=== PATIENT | female | born 1995 | race Caucasian/White ===

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

== ENCOUNTER 2017-01-21 18:51 | Emergency (ER) | payer OTHER ==
[~2017-01-21] VITALS: Ht 165.1 cm; Wt 81.8 kg
[~2017-01-21 18:51] MED LIST changes: +CEFU1TAB20 PO; -CEFU250T PO; +CLIN150C14; +CLIN150C14 PO; -CLIN1CAP5 PO; +LEVAINH INH; +MECL-68 PO; +PERC5TAB12 PO; -PERC5TAB6 PO; -XOPEAER INH; +ZOFR4TAB3 PO
[2017-01-21] MEDS ORDERED: LEVAINH INH (19:02)
[2017-01-21] MEDS ORDERED: BREO1INH INH (19:02)
[2017-01-21] MEDS ORDERED: NS 1,000 ML IV ONE ×2 (19:30→21:45)
[2017-01-21] MEDS ORDERED: METOCLOPRAMIDE INJ 10MG/2ML VIAL (J2765) IV ONE (19:30)
[2017-01-21] MEDS ORDERED: C1 ESTERASE INHIBITOR IV ONE (19:45)
[2017-01-21] MEDS ORDERED: DILUENT IV ONE (19:45)
[2017-01-21] MEDS: MORPHINE 4 MG/ML 1ML SYRINGE IV PRN ×2 (19:51→20:29)
[2017-01-21 19:54] LABS: BASO % 0.2 % (0.0-1.0); EOS # 0.3 K/mm3 (0.0-0.50); EOS % 1.4 % (0.0-3.0); LARGE UNSTAINED CELL # 0.1 K/mm3 (0.0-0.4); LARGE UNSTAINED CELL % 0.2 % (0.0-4.0); LYMPH # 1.4 K/mm3 (1.5-6.5); LYMPH % 5.9 % (24.0-44.0); MEAN CORPUSCULAR HEMOGLOBIN 26.7 pg (27.0-33.0); MEAN CORPUSCULAR HGB CONC 33.3 g/dl (32.0-36.5); MEAN CORPUSCULAR VOLUME 80.3 fl (80.0-96.0); MONO # 0.4 K/mm3 (0.0-0.8); MONO % 1.9 % (0.0-5.0); NEUTROPHILS % 90.4 % (36.0-66.0); PLATELET COUNT, AUTOMATED 376 k/mm3 (150-450); RED CELL DISTRIBUTION WIDTH 14.2 % (11.5-14.5); WHITE BLOOD COUNT 23.3 K/mm3 (4.0-10.0)
[2017-01-21 20:16] LABS: CONTROL LINE HCG INT CTR LINE PRESENT
[2017-01-21 20:25] LABS: ALBUMIN 3.8 GM/DL (3.2-5.2); ALKALINE PHOSPHATASE 85 U/L (45-117); ALT/SGPT 22 U/L (12-78); ANION GAP 11 MEQ/L (8-16); AST/SGOT 16 U/L (15-37); BILIRUBIN,DIRECT 0.1 MG/DL (0.0-0.2); BILIRUBIN,TOTAL 0.6 MG/DL (0.2-1.0); BLOOD UREA NITROGEN 10 MG/DL (7-18); CALCIUM LEVEL 9.1 MG/DL (8.5-10.1); CARBON DIOXIDE LEVEL 22 MEQ/L (21-32); CHLORIDE LEVEL 108 MEQ/L (98-107); CREATININE FOR GFR 0.84 MG/DL (0.55-1.02); GLUCOSE, FASTING 107 MG/DL (70-105); POTASSIUM SERUM 4.3 MEQ/L (3.5-5.1); SODIUM LEVEL 141 MEQ/L (136-145); TOTAL PROTEIN 7.6 GM/DL (6.4-8.2)
[2017-01-21] MEDS ORDERED: ISOVUE-370 76% 100ML VIAL (Q9967) As Ordered ONE (22:15)
--- NOTE | 2017-01-21 22:50 | REPUSA ---
CT of the abdomen and pelvis with contrast Clinical statement: leukocytosis. Technique: Multiple axial CT images were obtained from the base of the lungs through the floor of the pelvis utilizing 5 mm axial slices after administration of nonionic intravenous contrast. Coronal an d sagittal reconstructions were also obtained. Comparison: 12/02/2013. Findings: Chest: There is minimal atelectasis at the right lung base. Abdomen: The liver, spleen, pancreas, kidneys, gallbladder, and adrenal glands are unremarkable. The aorta is within normal limits. There is no evidence of abdominal lymphadenopathy. There is moderate a mount of abdominal ascites. Pelvis: The proximal small bowel, Involving the duodenum and proximal jejunum, is diffusely inflamed with extensive bowel wall thickening and edema noted. The patient is status post appendectomy. The co antoni appears unremarkable. The urinary bladder is within normal limits. The other pelvic structures ap pear grossly intact. There is no evidence of pelvic lymphadenopathy. There is moderate amount of pelv ic ascites. Bones: There are no suspicious osseous abnormalities seen. Impression: 1. The bowel wall thickening involving the duodenum and proximal jejunum as worsened since the prior study, with increased distribution of inflammation since the prior exam. There is no evidence of yoselin l obstruction. Differential diagnosis includes infectious versus inflammatory enteritis. Lymphoma is considered unlikely, but cannot be excluded. Endoscopy may be helpful for further evaluation. 2. Moderate amount of abdominal and pelvic ascites, increased since the prior study. 3. Minimal right basilar atelectasis.
[2017-01-22] MEDS ORDERED: NORCO 5/325MG TABLET (BULK FOR ED) PO ONE (00:45)
[2017-01-22 01:04] VITALS: BP 101/59
--- NOTE | 2017-01-22 13:46 | ED PDOC ---
Post-Departure Follow-Up dr nghia carrera faxed formal report of ct abd/p for fu Fortino Solorio MD Jan 22, 2017 13:46
== END 2017-01-22 01:21 | disposition home or self-care (01) ==
LOC: M ED 19:32
DX: D84.1 Defects in the complement system (principal); J45.909 Unspecified asthma, uncomplicated; Z88.0 Allergy status to penicillin; Z88.2 Allergy status to sulfonamides; Z88.8 Allergy status to other drugs, medicaments and biological substances; Z79.51 Long term (current) use of inhaled steroids; Z79.899 Other long term (current) drug therapy
CPT/HCPCS: 74177; 80048; 80076; 81001; 83605; 83690; 84703; 85025; 87040; 87088; 87186; 93041; 96361; 96374; 96375; 99285; J0597; J2765; Q9967

== ENCOUNTER 2017-03-12 19:24 | Emergency (ER) | payer OTHER, SELFPAY ==
[~2017-03-12] VITALS: Ht 165.1 cm; Wt 85.0 kg
[~2017-03-12 19:24] MED LIST changes: +BREO1INH INH
[2017-03-12] MEDS ORDERED: METOCLOPRAMIDE INJ 10MG/2ML VIAL (J2765) IV ONE (19:45)
[2017-03-12] MEDS ORDERED: C1 ESTERASE INHIBITOR IV ONE (19:45)
[2017-03-12] MEDS ORDERED: DILUENT IV ONE (19:45)
[2017-03-12 22:56] VITALS: BP 115/60
== END 2017-03-12 22:57 | disposition home or self-care (01) ==
LOC: M ED 19:24 → EDBD 19:24 → EDUNIT# 19:24 → M ED 22:57
DX: D84.1 Defects in the complement system (principal); T78.3XXA Angioneurotic edema, initial encounter; X58.XXXA Exposure to other specified factors, initial encounter; Y92.9 Unspecified place or not applicable; Y93.9 Activity, unspecified; Y99.8 Other external cause status; Z79.899 Other long term (current) drug therapy; Z88.0 Allergy status to penicillin; Z88.2 Allergy status to sulfonamides; Z88.8 Allergy status to other drugs, medicaments and biological substances
CPT/HCPCS: 96374; 96375; 99283; J0597; J2765

== ENCOUNTER 2017-04-15 23:26 | Emergency (ER) | payer OTHER ==
[~2017-04-15] VITALS: Ht 165.1 cm; Wt 77.3 kg
[2017-04-16] MEDS ORDERED: [UNRECOGNIZED DRUG - CODE] IV (00:01)
[2017-04-16] MEDS ORDERED: HEPA100SY INJ (00:01)
[2017-04-16] MEDS ORDERED: ONDANSETRON 4MG/2ML VIAL (J2405) IV ONE (01:00)
[2017-04-16] MEDS ORDERED: C1 ESTERASE INHIBITOR IV ONE (01:00)
[2017-04-16] MEDS ORDERED: NS 1,000 ML IV ONE (01:00)
[2017-04-16] MEDS ORDERED: DILUENT IV ONE (01:00)
[2017-04-16] MEDS ORDERED: METAL LOCK LOOP XX ONE (01:16)
[2017-04-16 01:24] LABS: BASO # 0.1 K/mm3 (0.0-0.2); BASO % 0.5 % (0.0-1.0); EOS # 0.3 K/mm3 (0.0-0.50); EOS % 1.8 % (0.0-3.0); LARGE UNSTAINED CELL # 0.2 K/mm3 (0.0-0.4); LARGE UNSTAINED CELL % 1.3 % (0.0-4.0); LYMPH # 2.2 K/mm3 (1.5-6.5); LYMPH % 14.7 % (24.0-44.0); MEAN CORPUSCULAR HEMOGLOBIN 27.4 pg (27.0-33.0); MEAN CORPUSCULAR HGB CONC 34.1 g/dl (32.0-36.5); MEAN CORPUSCULAR VOLUME 80.6 fl (80.0-96.0); MONO # 0.5 K/mm3 (0.0-0.8); MONO % 3.3 % (0.0-5.0); NEUTROPHILS # 11.8 K/mm3 (1.8-7.7); NEUTROPHILS % 78.4 % (36.0-66.0); PLATELET COUNT, AUTOMATED 357 k/mm3 (150-450); RED CELL DISTRIBUTION WIDTH 14.2 % (11.5-14.5); WHITE BLOOD COUNT 15.1 K/mm3 (4.0-10.0)
[2017-04-16] MEDS: MORPHINE 4 MG/ML 1ML SYRINGE IV PRN ×2 (01:32→02:18)
[2017-04-16 01:45] LABS: ALBUMIN 3.5 GM/DL (3.2-5.2); ALBUMIN/GLOBULIN RATIO 0.88 (1.00-1.93); ALKALINE PHOSPHATASE 75 U/L (45-117); ALT/SGPT 28 U/L (12-78); ANION GAP 8 MEQ/L (8-16); AST/SGOT 12 U/L (15-37); BILIRUBIN,DIRECT 0.1 MG/DL (0.0-0.2); BILIRUBIN,TOTAL 0.4 MG/DL (0.2-1.0); BLOOD UREA NITROGEN 16 MG/DL (7-18); CALCIUM LEVEL 8.8 MG/DL (8.5-10.1); CARBON DIOXIDE LEVEL 24 MEQ/L (21-32); CHLORIDE LEVEL 109 MEQ/L (98-107); CREATININE FOR GFR 0.87 MG/DL (0.55-1.02); GLUCOSE, FASTING 111 MG/DL (70-105); POTASSIUM SERUM 3.6 MEQ/L (3.5-5.1); SODIUM LEVEL 141 MEQ/L (136-145); TOTAL PROTEIN 7.5 GM/DL (6.4-8.2)
[2017-04-16 05:19] VITALS: BP 100/52
== END 2017-04-16 05:22 | disposition home or self-care (01) ==
LOC: M ED 23:26
DX: D84.1 Defects in the complement system (principal); F17.210 Nicotine dependence, cigarettes, uncomplicated; Z79.51 Long term (current) use of inhaled steroids; Z88.0 Allergy status to penicillin; Z88.2 Allergy status to sulfonamides; Z88.8 Allergy status to other drugs, medicaments and biological substances
CPT/HCPCS: 80048; 80076; 83690; 85025; 93041; 96361; 96374; 96375; 96376; 99284; J0597; J2405

== ENCOUNTER 2017-04-29 19:03 | Emergency (ER) | payer OTHER ==
[~2017-04-29] VITALS: Ht 165.1 cm; Wt 91.8 kg
[~2017-04-29 19:03] MED LIST changes: +HEPA100SY INJ
[2017-04-29] MEDS ORDERED: SODIUM CHLORIDE 0.9% INJ 10 ML SYR IV PRN (20:45)
[2017-04-29] MEDS ORDERED: C1 ESTERASE INHIBITOR IV ONE (20:45)
[2017-04-29] MEDS ORDERED: KETOROLAC 30 MG/ML VIAL (J1885) IV ONE (20:45)
[2017-04-29] MEDS ORDERED: DILUENT IV ONE (20:45)
[2017-04-29 22:40] VITALS: BP 111/55
--- NOTE | 2017-04-30 00:15 | REP ---
Clinical: Acute abdominal pain. Technique: Upright view of the chest with supine and upright views of the abdomen and pelvis. Findings: Frontal upright view of the chest demonstrates no acute cardiopulmonary process or free air below the diaphragm to suspect pneumoperitoneum. [id number] identified with tip in the right atrium. Supine and upright views of the abdomen and pelvis demonstrate nonspecific bowel gas pattern without obstruction or perforation. No organomegaly. No abnormal calcifications. Skeletal structures normal for age. Impression: Nonspecific bowel gas pattern. Signed by Chucho Bowman MD 04/30/2017 12:05 A
== END 2017-04-29 22:42 | disposition home or self-care (01) ==
LOC: M ED 19:03
DX: D84.1 Defects in the complement system (principal); R10.9 Unspecified abdominal pain; Z79.51 Long term (current) use of inhaled steroids; Z79.899 Other long term (current) drug therapy; Z88.8 Allergy status to other drugs, medicaments and biological substances; Z88.2 Allergy status to sulfonamides; Z88.1 Allergy status to other antibiotic agents
CPT/HCPCS: 74022; 84702; 96374; 96375; 99283; J0597; J1885

== ENCOUNTER → 2023-09-16 | Outpatient (REF) ==
[~2023-09-16] MED LIST changes: -CLIN150C14; -CLIN150C14 PO; +CLIN150C17; +CLIN150C17 PO; +MECL-209 PO; -MECL-68 PO; +ZOFR4TAB14 PO; -ZOFR4TAB3 PO; -[UNRECOGNIZED DRUG - CODE] IV; +[UNRECOGNIZED DRUG - OTHER] IV
== END ==
LOC: M EMP 09:13
PROVIDERS: ATTEND Family Medicine
DX: Z11.52 Encounter for screening for COVID-19 (principal)

== ENCOUNTER → 2023-10-13 | Outpatient (REF) | payer OTHER, MEDICAID ==
[2023-10-13 13:48] LABS: APPEARANCE, URINE HAZY (CLEAR); BACTERIA, URINE AUTO NEGATIVE (NEGATIVE); BILIRUBIN, URINE AUTO NEGATIVE (NEGATIVE); BLOOD, URINE BLOOD NEGATIVE (NEGATIVE); COLOR, URINE YELLOW (YELLOW); GLUCOSE, URINE (UA) AUTO NEGATIVE (NEGATIVE); KETONE, URINE AUTO NEGATIVE (NEGATIVE); LEUKOCYTE ESTERASE, URINE AUTO NEGATIVE (NEGATIVE); MUCUS, URINE SMALL (NEGATIVE); NITRITE, URINE AUTO NEGATIVE (NEGATIVE); PROTEIN, URINE AUTO 1+ mg/dL (NEGATIVE); RBC, URINE AUTO 1 /HPF (0-3); SPECIFIC GRAVITY URINE AUTO 1.023 (1.002-1.035); SQUAMOUS EPITHELIAL CELL UR AU 3 /HPF (0-6); WBC, URINE AUTO 2 /HPF (0-3)
== END ==
LOC: M LAB REF 13:02
PROVIDERS: ATTEND Physician Assistant
DX: N39.0 Urinary tract infection, site not specified (principal)

== ENCOUNTER → 2023-10-21 | Outpatient (REF) | payer OTHER, MEDICAID ==
[2023-10-21 17:59] LABS: HEMATOCRIT 35.5 % (36.0-47.0); HEMOGLOBIN 11.6 g/dl (12.0-15.5); MEAN CORPUSCULAR HGB CONC 32.7 g/dl (32.0-36.5); MEAN CORPUSCULAR VOLUME 85.7 fl (80.0-96.0); PLATELET COUNT, AUTOMATED 235 10^3/uL (150-450); RED BLOOD COUNT 4.14 10^6/uL (4.00-5.40); WHITE BLOOD COUNT 10.5 10^3/uL (4.0-10.0)
[2023-10-21 18:58] LABS: HIV 1&2 SCREEN NEGATIVE (NEGATIVE)
[2023-10-21 19:06] LABS: HEPATITIS C VIRUS ABY INDEX < 0.02 INDEX (<0.8)
[2023-10-21 19:19] LABS: GC DNA AMPLIFICATION NEGATIVE (NEGATIVE)
== END ==
LOC: M SFHCWAGY 17:24
PROVIDERS: ATTEND Advanced Practice Midwife
DX: Z34.81 Encounter for supervision of other normal pregnancy, first trimester (principal)

== ENCOUNTER → 2023-12-17 | Outpatient (CLI) | payer MEDICAID | LOC: M WHC 14:27 | PROVIDERS: ATTEND Advanced Practice Midwife | DX: Z34.82 Encounter for supervision of other normal pregnancy, second trimester (principal) ==

== ENCOUNTER 2024-01-12 20:12 | Outpatient (CLI) | payer MEDICAID ==
[~2024-01-12] VITALS: Ht 165.1 cm; Wt 79.5 kg
[~2024-01-12 20:12] MED LIST changes: -ACET325C5 PO; -PRENTAB9 PO
[2024-01-12] MEDS ORDERED: PRENTAB9 PO (20:27)
[2024-01-12] MEDS ORDERED: ACET325C5 PO (20:27)
[2024-01-12 22:35] LABS: HEMATOCRIT 29.5 % (36.0-47.0); HEMOGLOBIN 9.7 g/dl (12.0-15.5); MEAN CORPUSCULAR HGB CONC 32.9 g/dl (32.0-36.5); PLATELET COUNT, AUTOMATED 208 10^3/uL (150-450); RED BLOOD COUNT 3.47 10^6/uL (4.00-5.40); WHITE BLOOD COUNT 11.1 10^3/uL (4.0-10.0)
[2024-01-12 23:00] LABS: LIPASE 33 U/L (12-53)
[2024-01-12 23:01] LABS: AMYLASE 54 U/L (30-118)
[2024-01-12 23:02] LABS: ALBUMIN 2.2 G/DL (3.2-5.2); ALKALINE PHOSPHATASE 60 U/L (46-116); ALT/SGPT 12 U/L (7.0-40); AST/SGOT 8 U/L (<34); BILIRUBIN,TOTAL 0.4 MG/DL (0.3-1.2); BLOOD UREA NITROGEN 7 MG/DL (9-23); CALCIUM LEVEL 7.8 MG/DL (8.5-10.1); CARBON DIOXIDE LEVEL 27 MMOL/L (20-31); CHLORIDE LEVEL 108 MMOL/L (98-107); CREATININE FOR GFR 0.62 MG/DL (0.55-1.30); GLOMERULAR FILTRATION RATE > 60.0 (>60); GLUCOSE, FASTING 108 MG/DL (60-100); POTASSIUM SERUM 3.8 MMOL/L (3.5-5.1); SODIUM LEVEL 139 MMOL/L (136-145); TOTAL PROTEIN 5.3 G/DL (5.7-8.2)
== END 2024-01-13 00:19 | disposition home or self-care (01) ==
LOC: M LDO 20:12
PROVIDERS: ATTEND Advanced Practice Midwife
DX: O26.892 Other specified pregnancy related conditions, second trimester (principal); O99.012 Anemia complicating pregnancy, second trimester; O99.13 Other diseases of the blood and blood-forming organs and certain disorders involving the immune mechanism complicating the puerperium; R10.11 Right upper quadrant pain; D84.1 Defects in the complement system; D50.9 Iron deficiency anemia, unspecified; Z14.1 Cystic fibrosis carrier; Z88.0 Allergy status to penicillin; Z88.1 Allergy status to other antibiotic agents; Z3A.24 24 weeks gestation of pregnancy
CPT/HCPCS: 36415; 59025; 80053; 82150; 83690; 85027; G0463

== ENCOUNTER → 2024-01-12 | Outpatient (CLI) | payer MEDICAID ==
[~2024-01-12] MED LIST changes: +ACET325C5 PO; +PRENTAB9 PO
[2024-01-12 18:23] LABS: HEMATOCRIT 32.3 % (36.0-47.0); HEMOGLOBIN 10.5 g/dl (12.0-15.5); MEAN CORPUSCULAR HEMOGLOBIN 27.9 pg (27.0-33.0); MEAN CORPUSCULAR HGB CONC 32.5 g/dl (32.0-36.5); MEAN CORPUSCULAR VOLUME 85.9 fl (80.0-96.0); PLATELET COUNT, AUTOMATED 228 10^3/uL (150-450); RED BLOOD COUNT 3.76 10^6/uL (4.00-5.40)
[2024-01-12 20:17] LABS: GC DNA AMPLIFICATION NEGATIVE (NEGATIVE)
== END ==
LOC: M PLALAB 14:38
PROVIDERS: ATTEND Obstetrics & Gynecology
DX: Z36.89 Encounter for other specified antenatal screening (principal); Z3A.24 24 weeks gestation of pregnancy

== ENCOUNTER 2024-01-18 22:46 | Outpatient (CLI) | payer MEDICAID ==
[~2024-01-18] VITALS: Ht 165.1 cm; Wt 79.8 kg
[~2024-01-18 22:46] MED LIST changes: +ACET325C5 PO; +PRENTAB9 PO
[2024-01-18 23:01] VITALS: BP 104/56
[2024-01-18 23:58] VITALS: BP 98/53
[2024-01-19] MEDS: METOCLOPRAMIDE 10MG TAB PO ONE (00:09)
== END 2024-01-19 00:49 | disposition home or self-care (01) ==
LOC: M LDO 22:46
PROVIDERS: ATTEND Obstetrics & Gynecology
DX: O26.893 Other specified pregnancy related conditions, third trimester (principal); R10.30 Lower abdominal pain, unspecified; Z3A.25 25 weeks gestation of pregnancy
CPT/HCPCS: 59025; 81001; 87086; G0463

== ENCOUNTER → 2024-02-01 | Outpatient (CLI) | payer MEDICAID | LOC: M PLALAB 11:51 | PROVIDERS: ATTEND Obstetrics & Gynecology | DX: Z36.89 Encounter for other specified antenatal screening (principal); Z3A.24 24 weeks gestation of pregnancy ==

== ENCOUNTER 2024-06-16 17:54 | Emergency (ER) | payer MEDICAID, OTHER ==
[~2024-06-16] VITALS: Ht 165.1 cm; Wt 78.1 kg
[~2024-06-16 17:54] MED LIST changes: +LEVA15HF2 INH; -LEVAINH INH
[2024-06-16 18:06] VITALS: TEMP 97.9
[2024-06-16 18:37] LABS: BASO # 0.1 10^3/uL (0.0-0.2); BASO % 0.5 % (0.0-1.0); EOS % 0.1 % (0.0-3.0); HEMATOCRIT 47.4 % (36.0-47.0); HEMOGLOBIN 14.6 g/dl (12.0-15.5); LYMPH # 2.3 10^3/uL (1.5-5.0); LYMPH % 11.2 % (24.0-44.0); MEAN CORPUSCULAR HEMOGLOBIN 23.3 pg (27.0-33.0); MEAN CORPUSCULAR HGB CONC 30.8 g/dl (32.0-36.5); MEAN CORPUSCULAR VOLUME 75.7 fl (80.0-96.0); MONO # 1.3 10^3/uL (0.0-0.8); MONO % 6.5 % (2.0-8.0); NEUTROPHILS # 16.6 10^3/uL (1.5-8.5); NEUTROPHILS % 81.3 % (36.0-66.0); PLATELET COUNT, AUTOMATED 539 10^3/uL (150-450); RED BLOOD COUNT 6.26 10^6/uL (4.00-5.40); WHITE BLOOD COUNT 20.4 10^3/uL (4.0-10.0)
[2024-06-16] MEDS ORDERED: ISOVUE-370 76% 100ML VIAL As Ordered ONE (18:46)
[2024-06-16] MEDS: NS (Normal Saline) 0.9% 1,000 ML IV ONE (18:50)
[2024-06-16] MEDS: PROMETHAZINE 25MG/ML 1ML VIAL IV ONE ×2 (18:50→21:20)
[2024-06-16] MEDS: MORPHINE 4 MG/ML 1ML VIAL IV ONE ×2 (18:51→21:19)
[2024-06-16 18:59] LABS: LIPASE 39 U/L (12-53)
[2024-06-16 19:01] LABS: ALBUMIN 4.1 G/DL (3.2-5.2); ALKALINE PHOSPHATASE 105 U/L (35-104); ALT/SGPT 25 U/L (7.0-40); AST/SGOT 14 U/L (<34); BILIRUBIN,DIRECT 0.2 MG/DL (<0.4); BILIRUBIN,TOTAL 0.7 MG/DL (0.3-1.2); BLOOD UREA NITROGEN 15 MG/DL (9-23); CALCIUM LEVEL 10.1 MG/DL (8.5-10.1); CARBON DIOXIDE LEVEL 24 MMOL/L (20-31); CHLORIDE LEVEL 104 MMOL/L (98-107); CREATININE FOR GFR 0.92 MG/DL (0.55-1.30); GLOMERULAR FILTRATION RATE > 60.0 (>60); GLUCOSE, FASTING 122 MG/DL (60-100); POTASSIUM SERUM 4.4 MMOL/L (3.5-5.1); SODIUM LEVEL 140 MMOL/L (136-145); TOTAL PROTEIN 8.7 G/DL (5.7-8.2)
[2024-06-16] MEDS: C1 ESTERASE INHIBITOR IV ONE (22:20)
[2024-06-16 23:00] VITALS: O2SAT 96
[2024-06-16 23:30] VITALS: BP 112/65
== END 2024-06-16 23:46 | disposition home or self-care (01) ==
LOC: M ED 17:54
DX: R10.9 Unspecified abdominal pain (principal); D84.1 Defects in the complement system; F41.9 Anxiety disorder, unspecified; Z88.0 Allergy status to penicillin; Z88.2 Allergy status to sulfonamides; Z88.8 Allergy status to other drugs, medicaments and biological substances; Z79.1 Long term (current) use of non-steroidal anti-inflammatories (NSAID); Z79.899 Other long term (current) drug therapy
CPT/HCPCS: 74177; 80047; 80048; 80076; 83605; 83690; 85025; 87040; 96361; 96374; 96375; 96376; 99284; J0597; J2550; Q9967

== ENCOUNTER 2024-07-04 01:57 | Emergency (ER) | payer OTHER ==
[~2024-07-04] VITALS: Ht 165.1 cm; Wt 76.6 kg
[2024-07-04 02:01] VITALS: TEMP 97.8
[2024-07-04] MEDS ORDERED: ONDANSETRON 4MG 2ML VIAL IV ONE (02:40)
[2024-07-04 02:59] LABS: BASO # 0.1 10^3/uL (0.0-0.2); BASO % 0.5 % (0.0-1.0); EOS # 0.1 10^3/uL (0.0-0.5); EOS % 0.6 % (0.0-3.0); HEMATOCRIT 40.9 % (36.0-47.0); HEMOGLOBIN 12.3 g/dl (12.0-15.5); LYMPH # 1.7 10^3/uL (1.5-5.0); LYMPH % 9.4 % (24.0-44.0); MEAN CORPUSCULAR HEMOGLOBIN 23.4 pg (27.0-33.0); MEAN CORPUSCULAR HGB CONC 30.1 g/dl (32.0-36.5); MEAN CORPUSCULAR VOLUME 77.8 fl (80.0-96.0); MONO # 1.1 10^3/uL (0.0-0.8); MONO % 5.8 % (2.0-8.0); NEUTROPHILS % 83.3 % (36.0-66.0); PLATELET COUNT, AUTOMATED 318 10^3/uL (150-450); RED BLOOD COUNT 5.26 10^6/uL (4.00-5.40)
[2024-07-04] MEDS: C1 ESTERASE INHIBITOR IV ONE (03:07)
[2024-07-04] MEDS: MORPHINE 4 MG/ML 1ML VIAL IV PRN (03:07)
[2024-07-04] MEDS: PROMETHAZINE 25MG/ML 1ML VIAL IV ONE (03:07)
[2024-07-04 03:37] LABS: LIPASE 24 U/L (12-53)
[2024-07-04 03:39] LABS: ALBUMIN 3.5 G/DL (3.2-5.2); ALKALINE PHOSPHATASE 72 U/L (35-104); ALT/SGPT 20 U/L (7.0-40); AST/SGOT 20 U/L (<34); BILIRUBIN,DIRECT 0.2 MG/DL (<0.4); BILIRUBIN,TOTAL 0.5 MG/DL (0.3-1.2); BLOOD UREA NITROGEN 12 MG/DL (9-23); CALCIUM LEVEL 9.1 MG/DL (8.5-10.1); CARBON DIOXIDE LEVEL 22 MMOL/L (20-31); CHLORIDE LEVEL 111 MMOL/L (98-107); CREATININE FOR GFR 0.71 MG/DL (0.55-1.30); GLOMERULAR FILTRATION RATE > 60.0 (>60); GLUCOSE, FASTING 153 MG/DL (60-100); POTASSIUM SERUM 3.8 MMOL/L (3.5-5.1); SODIUM LEVEL 142 MMOL/L (136-145)
[2024-07-04 05:00] VITALS: BP 98/68; O2SAT 96
== END 2024-07-04 05:27 | disposition home or self-care (01) ==
LOC: M ED 01:57
DX: D84.1 Defects in the complement system (principal); J45.909 Unspecified asthma, uncomplicated; F17.290 Nicotine dependence, other tobacco product, uncomplicated; Z88.0 Allergy status to penicillin; Z88.2 Allergy status to sulfonamides; Z88.8 Allergy status to other drugs, medicaments and biological substances; Z79.1 Long term (current) use of non-steroidal anti-inflammatories (NSAID); Z79.899 Other long term (current) drug therapy
CPT/HCPCS: 80048; 80076; 83690; 85025; 93041; 96365; 96375; 99284; J0597; J1642; J2550

== ENCOUNTER 2024-08-03 20:48 | Emergency (ER) | payer MEDICAID, OTHER ==
[~2024-08-03] VITALS: Ht 165.1 cm; Wt 76.7 kg
[2024-08-03 23:07] LABS: BASO # 0.1 10^3/uL (0.0-0.2); BASO % 0.7 % (0.0-1.0); EOS # 0.2 10^3/uL (0.0-0.5); EOS % 1.7 % (0.0-3.0); HEMATOCRIT 39.5 % (36.0-47.0); HEMOGLOBIN 11.8 g/dl (12.0-15.5); LYMPH # 2.3 10^3/uL (1.5-5.0); LYMPH % 20.8 % (24.0-44.0); MEAN CORPUSCULAR HEMOGLOBIN 23.1 pg (27.0-33.0); MEAN CORPUSCULAR HGB CONC 29.9 g/dl (32.0-36.5); MEAN CORPUSCULAR VOLUME 77.3 fl (80.0-96.0); MONO # 0.8 10^3/uL (0.0-0.8); MONO % 6.8 % (2.0-8.0); NEUTROPHILS # 7.8 10^3/uL (1.5-8.5); NEUTROPHILS % 69.7 % (36.0-66.0); PLATELET COUNT, AUTOMATED 318 10^3/uL (150-450); RED BLOOD COUNT 5.11 10^6/uL (4.00-5.40); WHITE BLOOD COUNT 11.2 10^3/uL (4.0-10.0)
[2024-08-03 23:28] LABS: LIPASE 51 U/L (12-53)
[2024-08-03 23:31] LABS: ALBUMIN 4.2 G/DL (3.2-5.2); ALKALINE PHOSPHATASE 79 U/L (35-104); ALT/SGPT 22 U/L (7.0-40); AST/SGOT 16 U/L (<34); BILIRUBIN,DIRECT 0.1 MG/DL (<0.4); BILIRUBIN,TOTAL 0.3 MG/DL (0.3-1.2); BLOOD UREA NITROGEN 16 MG/DL (9-23); CALCIUM LEVEL 10.2 MG/DL (8.5-10.1); CARBON DIOXIDE LEVEL 26 MMOL/L (20-31); CHLORIDE LEVEL 106 MMOL/L (98-107); CREATININE FOR GFR 0.78 MG/DL (0.55-1.30); GLOMERULAR FILTRATION RATE > 60.0 (>60); GLUCOSE, FASTING 88 MG/DL (60-100); POTASSIUM SERUM 4.2 MMOL/L (3.5-5.1); SODIUM LEVEL 142 MMOL/L (136-145); TOTAL PROTEIN 8.1 G/DL (5.7-8.2)
[2024-08-03 23:32] LABS: HCG, SERUM QUALITATIVE NEGATIVE (NEGATIVE)
[2024-08-03 23:44] LABS: KETONE, URINE AUTO RFX NEGATIVE (NEGATIVE); RBC, URINE AUTO RFX 2 /HPF (0-3); SQUAM EPITHELIAL CELL UR AURFX 12 /HPF (0-6)
[2024-08-03 23:54] LABS: LEUKOCYTE ESTERASE UR AUTO RFX 3+ (NEGATIVE); NITRITE, URINE AUTO RFX POSITIVE (NEGATIVE); WBC, URINE AUTO RFX 166 /HPF (0-3)
[2024-08-04] MEDS ORDERED: C1 ESTERASE INHIBITOR IV ONE (00:20)
[2024-08-04] MEDS: ONDANSETRON 4MG 2ML VIAL IV ONE (00:51)
[2024-08-04] MEDS: cefTRIAXone SOD 1 GM in DEXTROSE 5% (D5W) ADV/MINI-BAG 50 ML IV ONE (00:57)
[2024-08-04] MEDS ORDERED: CEFD1CAP9 PO (01:37)
[2024-08-04] MEDS: C1 ESTERASE INHIBITOR IV ONE (01:44)
[2024-08-04 01:45] VITALS: BP 117/67
[2024-08-04 01:54] VITALS: TEMP 97.6; O2SAT 99
[2024-08-04] MEDS: SODIUM CHLORIDE 0.9% INJ 10 ML SYR IV PRN (01:56)
== END 2024-08-04 02:05 | disposition home or self-care (01) ==
LOC: M ED 20:48
DX: N39.0 Urinary tract infection, site not specified (principal); R10.9 Unspecified abdominal pain; D84.1 Defects in the complement system; Z88.0 Allergy status to penicillin; Z88.2 Allergy status to sulfonamides; Z88.8 Allergy status to other drugs, medicaments and biological substances; Z79.1 Long term (current) use of non-steroidal anti-inflammatories (NSAID); Z79.2 Long term (current) use of antibiotics
CPT/HCPCS: 80048; 80076; 81001; 83690; 84703; 85025; 87088; 87186; 96365; 96375; 99283; 99284; J0597; J0696; J1642

== ENCOUNTER 2024-09-09 06:53 | Emergency (ER) | payer MEDICAID, OTHER ==
[~2024-09-09] VITALS: Ht 165.1 cm; Wt 79.5 kg
[~2024-09-09 06:53] MED LIST changes: +CEFD1CAP9 PO
[2024-09-09] MEDS ORDERED: SODIUM CHLORIDE 0.9% INJ 10 ML SYR IV PRN (08:05)
[2024-09-09] MEDS: METOCLOPRAMIDE INJ 10MG/2ML VIAL IV ONE (08:30)
[2024-09-09] MEDS: MORPHINE 4 MG/ML 1ML VIAL IV ONE (08:31)
[2024-09-09 08:37] LABS: BASO # 0.1 10^3/uL (0.0-0.2); BASO % 0.4 % (0.0-1.0); EOS # 0.1 10^3/uL (0.0-0.5); EOS % 0.8 % (0.0-3.0); HEMATOCRIT 36.8 % (36.0-47.0); LYMPH # 1.2 10^3/uL (1.5-5.0); LYMPH % 8.6 % (24.0-44.0); MEAN CORPUSCULAR HEMOGLOBIN 23.4 pg (27.0-33.0); MEAN CORPUSCULAR HGB CONC 29.9 g/dl (32.0-36.5); MEAN CORPUSCULAR VOLUME 78.1 fl (80.0-96.0); MONO # 0.6 10^3/uL (0.0-0.8); MONO % 4.3 % (2.0-8.0); NEUTROPHILS % 85.6 % (36.0-66.0); PLATELET COUNT, AUTOMATED 406 10^3/uL (150-450); RED BLOOD COUNT 4.71 10^6/uL (4.00-5.40); WHITE BLOOD COUNT 14.1 10^3/uL (4.0-10.0)
[2024-09-09] MEDS: C1 ESTERASE INHIBITOR IV ONE (09:00)
[2024-09-09 09:07] LABS: ALBUMIN 3.5 G/DL (3.2-5.2); ALKALINE PHOSPHATASE 64 U/L (35-104); ALT/SGPT 16 U/L (7.0-40); AST/SGOT 14 U/L (<34); BILIRUBIN,TOTAL 0.6 MG/DL (0.3-1.2); BLOOD UREA NITROGEN 12 MG/DL (9-23); CALCIUM LEVEL 8.8 MG/DL (8.5-10.1); CARBON DIOXIDE LEVEL 27 MMOL/L (20-31); CHLORIDE LEVEL 112 MMOL/L (98-107); GLOMERULAR FILTRATION RATE > 60.0 (>60); GLUCOSE, FASTING 106 MG/DL (60-100); POTASSIUM SERUM 4.6 MMOL/L (3.5-5.1); SODIUM LEVEL 145 MMOL/L (136-145); TOTAL PROTEIN 7.2 G/DL (5.7-8.2)
[2024-09-09 09:53] VITALS: O2SAT 99
[2024-09-09 10:00] VITALS: BP 108/70
[2024-09-09 10:40] VITALS: TEMP 97.9
== END 2024-09-09 10:44 | disposition home or self-care (01) ==
LOC: M ED 07:30
DX: R10.9 Unspecified abdominal pain (principal); D84.1 Defects in the complement system; Z88.0 Allergy status to penicillin; Z88.2 Allergy status to sulfonamides; Z88.8 Allergy status to other drugs, medicaments and biological substances; Z79.899 Other long term (current) drug therapy
CPT/HCPCS: 80053; 85025; 96374; 96375; 99284; J0597; J2765

== ENCOUNTER 2024-10-16 18:25 | Emergency (ER) | payer OTHER ==
[~2024-10-16] VITALS: Ht 165.1 cm; Wt 78.4 kg
[2024-10-16 19:32] LABS: BASO # 0.1 10^3/uL (0.0-0.2); BASO % 0.5 % (0.0-1.0); EOS # 0.2 10^3/uL (0.0-0.5); EOS % 2.1 % (0.0-3.0); HEMATOCRIT 35.3 % (36.0-47.0); HEMOGLOBIN 10.8 g/dl (12.0-15.5); LYMPH # 3.3 10^3/uL (1.5-5.0); LYMPH % 32.8 % (24.0-44.0); MEAN CORPUSCULAR HEMOGLOBIN 23.4 pg (27.0-33.0); MEAN CORPUSCULAR HGB CONC 30.6 g/dl (32.0-36.5); MEAN CORPUSCULAR VOLUME 76.4 fl (80.0-96.0); MONO # 0.6 10^3/uL (0.0-0.8); NEUTROPHILS # 5.8 10^3/uL (1.5-8.5); NEUTROPHILS % 58.4 % (36.0-66.0); PLATELET COUNT, AUTOMATED 286 10^3/uL (150-450); RED BLOOD COUNT 4.62 10^6/uL (4.00-5.40); WHITE BLOOD COUNT 9.9 10^3/uL (4.0-10.0)
[2024-10-16 20:08] LABS: LIPASE 37 U/L (12-53)
[2024-10-16 20:10] LABS: ALBUMIN 3.6 G/DL (3.2-5.2); ALKALINE PHOSPHATASE 60 U/L (35-104); ALT/SGPT 12 U/L (7.0-40); AST/SGOT 13 U/L (<34); BILIRUBIN,DIRECT 0.1 MG/DL (<0.4); BILIRUBIN,TOTAL 0.4 MG/DL (0.3-1.2); BLOOD UREA NITROGEN 10 MG/DL (9-23); CALCIUM LEVEL 8.7 MG/DL (8.5-10.1); CARBON DIOXIDE LEVEL 26 MMOL/L (20-31); CHLORIDE LEVEL 106 MMOL/L (98-107); CREATININE FOR GFR 0.74 MG/DL (0.55-1.30); GLOMERULAR FILTRATION RATE > 60.0 (>60); GLUCOSE, FASTING 91 MG/DL (60-100); POTASSIUM SERUM 3.7 MMOL/L (3.5-5.1); SODIUM LEVEL 140 MMOL/L (136-145); TOTAL PROTEIN 7.3 G/DL (5.7-8.2)
[2024-10-16 20:31] LABS: HCG, SERUM QUALITATIVE POSITIVE (NEGATIVE)
[2024-10-17] MEDS: C1 ESTERASE INHIBITOR IV ONE (00:26)
[2024-10-17] MEDS: ONDANSETRON 4MG 2ML VIAL IV ONE (01:05)
[2024-10-17] MEDS: MORPHINE 4 MG/ML 1ML VIAL IV PRN (01:11)
[2024-10-17 01:36] VITALS: BP 109/59; TEMP 98.2; O2SAT 95
[2024-10-17 03:13] LABS: HCG, SERUM QUANTITATIVE 9676.6 MIU/ML (<4.2)
== END 2024-10-17 01:58 | disposition home or self-care (01) ==
LOC: M ED 18:25
DX: D84.1 Defects in the complement system (principal); Z3A.01 Less than 8 weeks gestation of pregnancy; J45.909 Unspecified asthma, uncomplicated; Z88.0 Allergy status to penicillin; Z88.8 Allergy status to other drugs, medicaments and biological substances; Z88.2 Allergy status to sulfonamides; Z79.899 Other long term (current) drug therapy
CPT/HCPCS: 76801; 76817; 80048; 80076; 83690; 84702; 84703; 85025; 93976; 96374; 96375; 99284; J0597

== ENCOUNTER → 2024-10-24 | Outpatient (REF) | LOC: M EMP 10:19 | PROVIDERS: ATTEND Family Medicine | DX: Z11.52 Encounter for screening for COVID-19 (principal) ==

== ENCOUNTER 2024-11-03 10:19 | Emergency (ER) | payer OTHER ==
[~2024-11-03] VITALS: Ht 165.1 cm; Wt 79.7 kg
[2024-11-03 11:40] LABS: BASO % 0.3 % (0.0-1.0); EOS # 0.1 10^3/uL (0.0-0.5); EOS % 0.7 % (0.0-3.0); HEMATOCRIT 36.2 % (36.0-47.0); HEMOGLOBIN 10.9 g/dl (12.0-15.5); LYMPH # 1.6 10^3/uL (1.5-5.0); MEAN CORPUSCULAR HGB CONC 30.1 g/dl (32.0-36.5); MEAN CORPUSCULAR VOLUME 76.4 fl (80.0-96.0); MONO # 0.4 10^3/uL (0.0-0.8); MONO % 4.3 % (2.0-8.0); NEUTROPHILS # 8.2 10^3/uL (1.5-8.5); NEUTROPHILS % 79.3 % (36.0-66.0); PLATELET COUNT, AUTOMATED 306 10^3/uL (150-450); RED BLOOD COUNT 4.74 10^6/uL (4.00-5.40); WHITE BLOOD COUNT 10.3 10^3/uL (4.0-10.0)
[2024-11-03 12:03] LABS: LIPASE 28 U/L (12-53)
[2024-11-03 12:05] LABS: ALBUMIN 3.4 G/DL (3.2-5.2); ALKALINE PHOSPHATASE 56 U/L (35-104); ALT/SGPT 18 U/L (7.0-40); AST/SGOT 12 U/L (<34); BILIRUBIN,DIRECT 0.2 MG/DL (<0.4); BILIRUBIN,TOTAL 0.6 MG/DL (0.3-1.2); BLOOD UREA NITROGEN 7 MG/DL (9-23); CALCIUM LEVEL 8.8 MG/DL (8.5-10.1); CARBON DIOXIDE LEVEL 26 MMOL/L (20-31); CHLORIDE LEVEL 108 MMOL/L (98-107); CREATININE FOR GFR 0.63 MG/DL (0.55-1.30); GLOMERULAR FILTRATION RATE > 60.0 (>60); GLUCOSE, FASTING 102 MG/DL (60-100); POTASSIUM SERUM 4.1 MMOL/L (3.5-5.1); SODIUM LEVEL 140 MMOL/L (136-145); TOTAL PROTEIN 6.8 G/DL (5.7-8.2)
[2024-11-03 12:34] LABS: HCG, SERUM QUANTITATIVE 192240.6 MIU/ML (<4.2)
[2024-11-03] MEDS: MORPHINE 4 MG/ML 1ML VIAL IV ONE (14:24)
[2024-11-03] MEDS: C1 ESTERASE INHIBITOR IV ONE (14:24)
[2024-11-03] MEDS: PROMETHAZINE 25MG/ML 1ML VIAL IV ONE (14:24)
[2024-11-03] MEDS ORDERED: PROM25TA12 PO (15:10)
[2024-11-03 16:00] VITALS: BP 95/55
[2024-11-03 16:20] VITALS: TEMP 98; O2SAT 100
== END 2024-11-03 16:21 | disposition home or self-care (01) ==
LOC: M ED 10:19
DX: D84.1 Defects in the complement system (principal); Z3A.08 8 weeks gestation of pregnancy; Z88.0 Allergy status to penicillin; Z88.2 Allergy status to sulfonamides; Z88.8 Allergy status to other drugs, medicaments and biological substances; Z79.899 Other long term (current) drug therapy
CPT/HCPCS: 76801; 80048; 80076; 83690; 84702; 85025; 86850; 86900; 86901; 93041; 96374; 96375; 99285; J0597; J2550

== ENCOUNTER 2024-11-20 10:36 | Emergency (ER) | payer OTHER ==
[~2024-11-20] VITALS: Ht 165.1 cm; Wt 76.5 kg
[~2024-11-20 10:36] MED LIST changes: +PROM25TA12 PO
[2024-11-20] MEDS ORDERED: C1 ESTERASE INHIBITOR IV ONE (12:25)
[2024-11-20 12:39] LABS: CK-MB VALUE MASS < 1.0 NG/ML (<3.6)
[2024-11-20 12:40] LABS: LIPASE 23 U/L (12-53)
[2024-11-20 12:42] LABS: ALBUMIN 3.5 G/DL (3.2-5.2); ALKALINE PHOSPHATASE 57 U/L (35-104); ALT/SGPT 23 U/L (7.0-40); AST/SGOT 28 U/L (<34); BILIRUBIN,DIRECT 0.1 MG/DL (<0.4); BILIRUBIN,TOTAL 0.5 MG/DL (0.3-1.2); BLOOD UREA NITROGEN 8 MG/DL (9-23); CALCIUM LEVEL 8.7 MG/DL (8.5-10.1); CARBON DIOXIDE LEVEL 21 MMOL/L (20-31); CHLORIDE LEVEL 105 MMOL/L (98-107); CREATININE FOR GFR 0.56 MG/DL (0.55-1.30); GLOMERULAR FILTRATION RATE > 90.0 (>60); GLUCOSE, FASTING 102 MG/DL (60-100); POTASSIUM SERUM 4.3 MMOL/L (3.5-5.1); SODIUM LEVEL 137 MMOL/L (136-145); TOTAL PROTEIN 7.2 G/DL (5.7-8.2)
[2024-11-20 12:43] LABS: BASO # 0.1 10^3/uL (0.0-0.2); BASO % 0.4 % (0.0-1.0); EOS # 0.1 10^3/uL (0.0-0.5); EOS % 0.5 % (0.0-3.0); HEMATOCRIT 41.8 % (36.0-47.0); HEMOGLOBIN 13.2 g/dl (12.0-15.5); LYMPH # 1.8 10^3/uL (1.5-5.0); LYMPH % 12.7 % (24.0-44.0); MEAN CORPUSCULAR HEMOGLOBIN 23.7 pg (27.0-33.0); MEAN CORPUSCULAR HGB CONC 31.6 g/dl (32.0-36.5); MEAN CORPUSCULAR VOLUME 75.2 fl (80.0-96.0); MONO # 0.8 10^3/uL (0.0-0.8); MONO % 5.4 % (2.0-8.0); NEUTROPHILS # 11.1 10^3/uL (1.5-8.5); NEUTROPHILS % 80.6 % (36.0-66.0); PLATELET COUNT, AUTOMATED 328 10^3/uL (150-450); RED BLOOD COUNT 5.56 10^6/uL (4.00-5.40); WHITE BLOOD COUNT 13.8 10^3/uL (4.0-10.0)
[2024-11-20] MEDS: NS (Normal Saline) 0.9% 1,000 ML IV SCH (12:53)
[2024-11-20] MEDS: C1 ESTERASE INHIBITOR IV ONE (12:53)
[2024-11-20] MEDS: MORPHINE 4 MG/ML 1ML VIAL IV ONE (12:54)
[2024-11-20 13:15] LABS: CPK CREATINE PHOSPHOKINASE 84 U/L (34-145); HCG, SERUM QUANTITATIVE 110415.7 MIU/ML (<4.2); MB/CK RELATIVE INDEX 1.19 (< OR =4)
[2024-11-20] MEDS: PROMETHAZINE 25MG/ML 1ML VIAL IV ONE (13:30)
[2024-11-20 13:56] LABS: CK-MB VALUE MASS < 1.0 NG/ML (<3.6); CPK CREATINE PHOSPHOKINASE 125 U/L (34-145)
[2024-11-20 15:45] VITALS: BP 104/66; TEMP 97.2; O2SAT 99
== END 2024-11-20 16:08 | disposition home or self-care (01) ==
LOC: M ED 10:36
DX: O20.0 Threatened abortion (principal); R00.1 Bradycardia, unspecified; Z3A.00 Weeks of gestation of pregnancy not specified; O99.411 Diseases of the circulatory system complicating pregnancy, first trimester; O99.511 Diseases of the respiratory system complicating pregnancy, first trimester; Z88.0 Allergy status to penicillin; Z88.2 Allergy status to sulfonamides; Z88.8 Allergy status to other drugs, medicaments and biological substances; Z79.899 Other long term (current) drug therapy
CPT/HCPCS: 80048; 80076; 82550; 82553; 83690; 84484; 84702; 85025; 93005; 96374; 96375; 99284; J0597; J2550

== ENCOUNTER → 2024-11-29 | Outpatient (CLI) | payer OTHER ==
[2024-11-29 14:01] LABS: HEMATOCRIT 35.3 % (36.0-47.0); HEMOGLOBIN 10.9 g/dl (12.0-15.5); MEAN CORPUSCULAR HEMOGLOBIN 23.6 pg (27.0-33.0); MEAN CORPUSCULAR HGB CONC 30.9 g/dl (32.0-36.5); MEAN CORPUSCULAR VOLUME 76.4 fl (80.0-96.0); PLATELET COUNT, AUTOMATED 322 10^3/uL (150-450); RED BLOOD COUNT 4.62 10^6/uL (4.00-5.40); WHITE BLOOD COUNT 10.1 10^3/uL (4.0-10.0)
[2024-11-29 14:47] LABS: Trichomonas vaginalis (AMP) NOT DETECTED (NEGATIVE)
[2024-11-29 14:51] LABS: HIV 1&2 SCREEN NEGATIVE (NEGATIVE)
[2024-11-29 14:59] LABS: HEPATITIS C VIRUS ABY INDEX 0.04 INDEX (<0.8)
[2024-11-29 15:11] LABS: GC DNA AMPLIFICATION NEGATIVE (NEGATIVE)
== END ==
LOC: M PLALAB 10:32
PROVIDERS: ATTEND Advanced Practice Midwife
DX: Z34.81 Encounter for supervision of other normal pregnancy, first trimester (principal)

== ENCOUNTER → 2024-11-29 | Outpatient (REF) | payer OTHER, MEDICAID | LOC: M PLALAB 09:56 | PROVIDERS: ATTEND Advanced Practice Midwife | DX: Z34.81 Encounter for supervision of other normal pregnancy, first trimester (principal) ==

== ENCOUNTER 2025-02-25 14:30 | Inpatient (IN) | payer OTHER, MEDICAID ==
[~2025-02-25] VITALS: Ht 165.1 cm; Wt 76.5 kg
[~2025-02-25 14:30] MED LIST changes: +ACET-683 PO; +BACI1CAP PO; +CEFD300CAP PO; +CEFP200T PO; +FOSF3PAC2 PO; +HEPA1INJ6 IV; +PNV1TABL16 PO
[2025-02-25 14:48] VITALS: BP 119/74
[2025-02-25] MEDS ORDERED: ACETAMINOPHEN 325 MG TAB PO PRN (15:30)
[2025-02-25] MEDS: PROMETHAZINE 25MG/ML 1ML VIAL IV PRN (16:04)
[2025-02-25] MEDS: LACTATED RINGER'S 1000 ML IV STA (16:04)
[2025-02-25 16:44] LABS: PLATELET COUNT, AUTOMATED 253 10^3/uL (150-450)
[2025-02-25 17:10] LABS: COMPLEMENT C4 < 1.5 MG/DL (12-36)
[2025-02-25 17:12] LABS: ALT/SGPT 18 U/L (7.0-40); AST/SGOT 60 U/L (<34); CALCIUM LEVEL 8.2 MG/DL (8.5-10.1); CARBON DIOXIDE LEVEL 22 MMOL/L (20-31); CHLORIDE LEVEL 103 MMOL/L (98-107); CREATININE FOR GFR 0.57 MG/DL (0.55-1.30); GLOMERULAR FILTRATION RATE > 90.0 (>60); POTASSIUM SERUM 5.5 MMOL/L (3.5-5.1); SODIUM LEVEL 139 MMOL/L (136-145)
[2025-02-25] MEDS: LR 1,000 ML IV SCH (17:23)
[2025-02-25] MEDS: MORPHINE 4 MG/ML 1 ML VIAL IV PRN (17:24)
[2025-02-25 17:41] LABS: C REACTIVE PROTEIN QUANTITATIV < 0.50 MG/DL (<1.0)
[2025-02-25 17:52] LABS: KETONE, URINE AUTO RFX NEGATIVE (NEGATIVE); MUCUS, URINE RFX SMALL (NEGATIVE); NITRITE, URINE AUTO RFX NEGATIVE (NEGATIVE); RBC, URINE AUTO RFX 1 /HPF (0-3); SQUAM EPITHELIAL CELL UR AURFX 7 /HPF (0-6); WBC, URINE AUTO RFX 2 /HPF (0-3)
[2025-02-25 17:53] LABS: LEUKOCYTE ESTERASE UR AUTO RFX TRACE (NEGATIVE)
[2025-02-25] MEDS: C1 ESTERASE INHIBITOR IV ONE (18:34)
[2025-02-25 18:55] VITALS: BP 115/64
[2025-02-25 19:17] VITALS: BP 116/69; O2SAT 100
[2025-02-25 20:00] VITALS: O2SAT 100
[2025-02-25 21:14] VITALS: BP 103/58; O2SAT 98
[2025-02-25 21:21] VITALS: BP 110/61; TEMP 98.2; O2SAT 99
[2025-02-25] MEDS ORDERED: ALBUTEROL 90 MCG/ACT 8 GM HFA INHALER INH PRN (21:35)
[2025-02-26 00:09] VITALS: BP 101/58; TEMP 97.8; O2SAT 98
[2025-02-26 04:08] VITALS: BP 100/57; TEMP 97.2; O2SAT 97
[2025-02-26] MEDS ORDERED: HOME MED LIST COMPLETE! XX SCH (09:20)
[2025-02-26 12:59] VITALS: BP 94/55; TEMP 97.8; O2SAT 97
== END 2025-02-26 14:15 | disposition home or self-care (01) | DRG 566 ==
LOC: M LDO 14:30 → M LDI 15:22 → M PCU 21:21
PROVIDERS: ADMIT Specialist; ATTEND Advanced Practice Midwife
DX: O99.112 Other diseases of the blood and blood-forming organs and certain disorders involving the immune mechanism complicating pregnancy, second trimester (principal); D84.1 Defects in the complement system; Z3A.24 24 weeks gestation of pregnancy; Z88.0 Allergy status to penicillin; Z88.8 Allergy status to other drugs, medicaments and biological substances; Z88.2 Allergy status to sulfonamides; Z79.899 Other long term (current) drug therapy; D50.9 Iron deficiency anemia, unspecified; O21.0 Mild hyperemesis gravidarum; O99.012 Anemia complicating pregnancy, second trimester

== ENCOUNTER → 2025-03-23 | Outpatient (CLI) | payer OTHER | LOC: M WHC 14:27 | PROVIDERS: ATTEND Nurse Practitioner Family | DX: Z34.83 Encounter for supervision of other normal pregnancy, third trimester (principal); Z3A.28 28 weeks gestation of pregnancy ==

== ENCOUNTER 2025-04-12 17:56 | Emergency (ER) | payer OTHER ==
[2025-04-12] MEDS ORDERED: ACET1TAB55 PO (18:42)
== END 2025-04-12 17:59 | disposition admitted as inpatient to this hospital (09) ==
LOC: M ED 17:59
DX: Z53.21 Procedure and treatment not carried out due to patient leaving prior to being seen by health care provider (principal)

== ENCOUNTER 2025-04-12 18:05 | Outpatient (CLI) | payer OTHER ==
[~2025-04-12] VITALS: Ht 165.1 cm; Wt 81.4 kg
[2025-04-12 18:34] VITALS: BP 107/61; O2SAT 98
[2025-04-12] MEDS ORDERED: ACET1TAB55 PO (18:42)
[2025-04-12] MEDS ORDERED: HOME MED LIST COMPLETE! XX SCH (18:45)
[2025-04-12 19:58] LABS: KETONE, URINE AUTO RFX TRACE mg/dL (NEGATIVE); MUCUS, URINE RFX SMALL (NEGATIVE); NITRITE, URINE AUTO RFX NEGATIVE (NEGATIVE); RBC, URINE AUTO RFX 1 /HPF (0-3); SQUAM EPITHELIAL CELL UR AURFX 3 /HPF (0-6); WBC, URINE AUTO RFX 2 /HPF (0-3)
[2025-04-12 19:59] LABS: LEUKOCYTE ESTERASE UR AUTO RFX TRACE (NEGATIVE)
[2025-04-12 20:43] VITALS: BP 100/58
[2025-04-12] MEDS: PROMETHAZINE 25 MG TAB PO ONE (20:43)
[2025-04-12] MEDS: ACETAMINOPHEN 500 MG TAB PO ONE (20:44)
[2025-04-12] MEDS: LR 1,000 ML IV ONE (22:50)
[2025-04-12 23:19] VITALS: BP 95/53
[2025-04-13] MEDS: MORPHINE 10 MG/ML 1 ML VIAL SC ONE (00:10)
[2025-04-13 00:11] VITALS: O2SAT 99
[2025-04-13] MEDS: MORPHINE 10 MG/ML 1 ML VIAL IV ONE ×2 (00:11→05:41)
[2025-04-13 00:12] VITALS: BP 106/60
[2025-04-13 05:42] VITALS: BP 105/57
== END 2025-04-13 10:00 | disposition home or self-care (01) ==
LOC: M LDO 18:05
PROVIDERS: ATTEND Obstetrics & Gynecology
DX: O99.13 Other diseases of the blood and blood-forming organs and certain disorders involving the immune mechanism complicating the puerperium (principal); O09.33 Supervision of pregnancy with insufficient antenatal care, third trimester; D84.1 Defects in the complement system; Z3A.31 31 weeks gestation of pregnancy
CPT/HCPCS: 59025; 81001; 87086; 96374; 96375; 96376; G0463; J2550

== ENCOUNTER 2025-04-15 13:27 | Outpatient (CLI) | payer OTHER ==
[~2025-04-15] VITALS: Ht 165.1 cm; Wt 81.0 kg
[~2025-04-15 13:27] MED LIST changes: +ACET1TAB55 PO
[2025-04-15] MEDS ORDERED: HOME MED LIST COMPLETE! XX SCH (13:45)
[2025-04-15 13:46] VITALS: BP 110/73
[2025-04-15] MEDS: LR 1,000 ML IV SCH (14:50)
[2025-04-15] MEDS: MORPHINE 4 MG/ML 1 ML VIAL IV ONE ×2 (14:50→17:55)
[2025-04-15 14:56] LABS: PLATELET COUNT, AUTOMATED 261 10^3/uL (150-450)
[2025-04-15 15:14] LABS: APPEARANCE, URINE CLEAR (CLEAR); BACTERIA, URINE AUTO NEGATIVE (NEGATIVE); BILIRUBIN, URINE AUTO NEGATIVE (NEGATIVE); BLOOD, URINE BLOOD NEGATIVE (NEGATIVE); GLUCOSE, URINE (UA) AUTO NEGATIVE (NEGATIVE); KETONE, URINE AUTO 1+ mg/dL (NEGATIVE); LEUKOCYTE ESTERASE, URINE AUTO NEGATIVE (NEGATIVE); MUCUS, URINE SMALL (NEGATIVE); NITRITE, URINE AUTO NEGATIVE (NEGATIVE); PROTEIN, URINE AUTO 1+ mg/dL (NEGATIVE); RBC, URINE AUTO 0 /HPF (0-3); SPECIFIC GRAVITY URINE AUTO 1.018 (1.002-1.035); SQUAMOUS EPITHELIAL CELL UR AU 0 /HPF (0-6); UROBILINOGEN, URINE AUTO 2.0 mg/dL (0.0-2.0); WBC, URINE AUTO 0 /HPF (0-3)
[2025-04-15 15:18] LABS: ALT/SGPT 13 U/L (7.0-40); AST/SGOT 14 U/L (<34); CALCIUM LEVEL 7.6 MG/DL (8.5-10.1); CARBON DIOXIDE LEVEL 24 MMOL/L (20-31); CHLORIDE LEVEL 105 MMOL/L (98-107); CREATININE FOR GFR 0.55 MG/DL (0.55-1.30); GLOMERULAR FILTRATION RATE > 90.0 (>60); POTASSIUM SERUM 3.7 MMOL/L (3.5-5.1); SODIUM LEVEL 138 MMOL/L (136-145)
[2025-04-15 15:52] LABS: Trichomonas vaginalis (AMP) NOT DETECTED (NEGATIVE)
[2025-04-15 16:16] LABS: GC DNA AMPLIFICATION NEGATIVE (NEGATIVE)
[2025-04-15 20:57] VITALS: BP 104/62
== END 2025-04-15 20:12 | disposition home or self-care (01) ==
LOC: M LDO 13:27
PROVIDERS: ATTEND Obstetrics & Gynecology
DX: O26.893 Other specified pregnancy related conditions, third trimester (principal); O99.13 Other diseases of the blood and blood-forming organs and certain disorders involving the immune mechanism complicating the puerperium; O09.33 Supervision of pregnancy with insufficient antenatal care, third trimester; R25.2 Cramp and spasm; R10.2 Pelvic and perineal pain; D84.1 Defects in the complement system; Z3A.31 31 weeks gestation of pregnancy
CPT/HCPCS: 36415; 59025; 76815; 80053; 81001; 82150; 83690; 85027; 87661; 87810; 87850; 96374; 96375; 96376; G0463; J2550

== ENCOUNTER 2025-04-18 19:43 | Inpatient (IN) | payer OTHER ==
[~2025-04-18] VITALS: Ht 165.1 cm; Wt 81.0 kg
[2025-04-18 20:00] VITALS: BP 116/63
[2025-04-18] MEDS ORDERED: ONDANSETRON 4MG 2ML VIAL IV PRN (20:30)
[2025-04-18] MEDS ORDERED: CARBOPROST TROMETHAMINE 250 MCG/ML AMP IM PRN (20:30)
[2025-04-18] MEDS ORDERED: OXYTOCIN INJ 10UNITS/ML 1ML VIAL IM PRN (20:30)
[2025-04-18] MEDS ORDERED: METHYLERGONOVINE MALEATE 0.2 MG/ML 1 ML VIAL IM PRN (20:30)
[2025-04-18] MEDS ORDERED: LIDOCAINE 1% MDV 20 ML VIAL INFIL PRN (20:30)
[2025-04-18] MEDS ORDERED: TRANEXAMIC ACID INJection 1,000 MG in NS 100 ML IV PRN (20:30)
[2025-04-18] MEDS ORDERED: OXYTOCIN DRIP 30 UNITS in IV 1 EA IV PRN (20:30)
[2025-04-18] MEDS: BETAMETHASONE SOLUSPAN 6 MG/ML 5 ML VIAL IM SCH (20:55)
[2025-04-18] MEDS: NIFEdipine 10 MG CAP PO ONE ×2 (20:55→22:00)
[2025-04-18 21:08] LABS: BASO # 0.0 10^3/uL (0.0-0.2); BASO % 0.2 % (0.0-1.0); EOS # 0.2 10^3/uL (0.0-0.5); EOS % 1.9 % (0.0-3.0); LYMPH # 1.6 10^3/uL (1.5-5.0); LYMPH % 13.3 % (24.0-44.0); MONO # 0.8 10^3/uL (0.0-0.8); MONO % 6.3 % (2.0-8.0); NEUTROPHILS # 9.5 10^3/uL (1.5-8.5); NEUTROPHILS % 77.6 % (36.0-66.0); PLATELET COUNT, AUTOMATED 240 10^3/uL (150-450)
[2025-04-18] MEDS: VANCOMYCIN HCL 1,000 MG, VIAL MATE ADAPTER 1 EACH in NS 250 ML IV SCH (21:15)
[2025-04-18] MEDS: BUTORPHANOL 2 MG/ML 1 ML VIAL IV ONE (21:16)
[2025-04-18] MEDS: LR 1,000 ML IV SCH (21:16)
[2025-04-18 22:00] VITALS: BP 97/53
[2025-04-18 22:14] LABS: HEPATITIS C VIRUS ABY INDEX < 0.02 INDEX (<0.8); HIV 1&2 SCREEN NEGATIVE (NEGATIVE)
[2025-04-19] VITALS (9 sets, daily range): BP systolic 81–101; BP diastolic 46–56; TEMP 97.9
[2025-04-19 01:27] LABS: GC DNA AMPLIFICATION NEGATIVE (NEGATIVE)
[2025-04-19] MEDS: BUTORPHANOL 2 MG/ML 1 ML VIAL IV ONE (04:05)
== END 2025-04-19 21:54 | disposition home or self-care (01) | DRG 563 ==
LOC: M LDO 19:43 → INTOOBSV 20:27 → M LDI 20:27 → OBSVTOIN 20:36 → UNDODISOB 04-19 21:53
PROVIDERS: ADMIT Advanced Practice Midwife; ATTEND Advanced Practice Midwife
DX: O60.03 Preterm labor without delivery, third trimester (principal); Z3A.32 32 weeks gestation of pregnancy; O99.820 Streptococcus B carrier state complicating pregnancy

== ENCOUNTER 2025-04-23 18:42 | Outpatient (CLI) | payer OTHER ==
[~2025-04-23] VITALS: Ht 165.1 cm; Wt 81.1 kg
[2025-04-23] MEDS: ACETAMINOPHEN 500 MG TAB PO ONE (19:35)
== END 2025-04-23 19:48 | disposition home or self-care (01) ==
LOC: M LDO 18:42
PROVIDERS: ATTEND Advanced Practice Midwife
DX: O26.893 Other specified pregnancy related conditions, third trimester (principal); O99.113 Other diseases of the blood and blood-forming organs and certain disorders involving the immune mechanism complicating pregnancy, third trimester; O09.33 Supervision of pregnancy with insufficient antenatal care, third trimester; R51.9 Headache, unspecified; M54.50 Low back pain, unspecified; Z3A.32 32 weeks gestation of pregnancy; D84.1 Defects in the complement system
CPT/HCPCS: 59025; G0463

== ENCOUNTER → 2025-04-26 | Outpatient (CLI) | payer OTHER ==
[2025-04-26 15:08] LABS: PLATELET COUNT, AUTOMATED 207 10^3/uL (150-450)
[2025-04-26 15:14] LABS: IRON (FE) 17.0 UG/DL (50-170); PERCENT SATURATION 3.7 % (13.2-45.0)
[2025-04-26 15:15] LABS: PTH INTACT 43.3 PG/ML (18.5-88.0)
== END ==
LOC: M PLALAB 12:53
PROVIDERS: ATTEND Nurse Practitioner Family
DX: O99.019 Anemia complicating pregnancy, unspecified trimester (principal); Z3A.00 Weeks of gestation of pregnancy not specified

== ENCOUNTER 2025-07-07 11:19 | Emergency (ER) | payer OTHER ==
[~2025-07-07] VITALS: Ht 165.1 cm; Wt 75.7 kg
[2025-07-07 12:29] LABS: BASO # 0.1 10^3/uL (0.0-0.2); BASO % 0.4 % (0.0-1.0); EOS # 0.2 10^3/uL (0.0-0.5); EOS % 1.7 % (0.0-3.0); LYMPH # 1.6 10^3/uL (1.5-5.0); LYMPH % 11.5 % (24.0-44.0); MONO # 0.8 10^3/uL (0.0-0.8); MONO % 5.4 % (2.0-8.0); NEUTROPHILS # 11.2 10^3/uL (1.5-8.5); NEUTROPHILS % 80.6 % (36.0-66.0); PLATELET COUNT, AUTOMATED 330 10^3/uL (150-450)
[2025-07-07 12:30] LABS: KETONE, URINE AUTO RFX NEGATIVE (NEGATIVE); MUCUS, URINE RFX LARGE (NEGATIVE); NITRITE, URINE AUTO RFX NEGATIVE (NEGATIVE); RBC, URINE AUTO RFX 10 /HPF (0-3); SQUAM EPITHELIAL CELL UR AURFX 5 /HPF (0-6)
[2025-07-07 12:34] LABS: LEUKOCYTE ESTERASE UR AUTO RFX 1+ (NEGATIVE); WBC, URINE AUTO RFX 48 /HPF (0-3)
[2025-07-07 12:54] LABS: HCG, SERUM QUALITATIVE NEGATIVE (NEGATIVE)
[2025-07-07 12:58] LABS: ALT/SGPT 15 U/L (7.0-40); AST/SGOT 18 U/L (<34); CALCIUM LEVEL 8.6 MG/DL (8.5-10.1); CARBON DIOXIDE LEVEL 24 MMOL/L (20-31); CHLORIDE LEVEL 108 MMOL/L (98-107); CREATININE FOR GFR 0.95 MG/DL (0.55-1.30); GLOMERULAR FILTRATION RATE 84.2 (>60); POTASSIUM SERUM 4.3 MMOL/L (3.5-5.1); SODIUM LEVEL 143 MMOL/L (136-145)
[2025-07-07] MEDS ORDERED: ISOVUE-370 76% 100 ML VIAL As Ordered ONE (13:41)
[2025-07-07] MEDS: NS (Normal Saline) 0.9% 1,000 ML IV ONE (13:56)
[2025-07-07] MEDS: KETOROLAC 30 MG/ML 1 ML VIAL IV ONE (13:57)
[2025-07-07] MEDS: MORPHINE 4 MG/ML 1 ML VIAL IV ONE (16:10)
[2025-07-07] MEDS: C1 ESTERASE INHIBITOR IV ONE (16:10)
[2025-07-07] MEDS ORDERED: CIPR250T26 PO (16:38)
[2025-07-07 16:51] VITALS: BP 103/53; TEMP 97.4; O2SAT 97
== END 2025-07-07 17:04 | disposition home or self-care (01) ==
LOC: M ED 11:19
DX: N30.00 Acute cystitis without hematuria (principal); A09 Infectious gastroenteritis and colitis, unspecified; Z88.0 Allergy status to penicillin; Z88.2 Allergy status to sulfonamides; Z88.8 Allergy status to other drugs, medicaments and biological substances; Z79.1 Long term (current) use of non-steroidal anti-inflammatories (NSAID); Z79.2 Long term (current) use of antibiotics; Z79.899 Other long term (current) drug therapy
CPT/HCPCS: 74177; 80047; 80048; 80076; 81001; 83690; 84703; 85025; 87040; 87086; 93005; 96361; 96365; 96375; 99284; J0597; J1885; J2765; Q9967